=== PATIENT | male | born 1965 | race Caucasian/White ===

== ENCOUNTER 2022-03-14 18:15 | Emergency (ER) | payer OTHER ==
[2022-03-14 18:52] LABS: HEMOGLOBIN 14.1 gm/dl (14.0-17.5); RED BLOOD COUNT 4.48 M/UL (4.20-5.50); WHITE BLOOD COUNT 11.6 K/UL (4.5-11.0)
[2022-03-14 19:37] LABS: BUN/CREATININE RATIO 16 (0-10)
[2022-03-15] MEDS ORDERED: MAGNESIUM100 MG PO (17:41)
[2022-03-15] MEDS ORDERED: KLOR-CON M2020 MEQ PO (17:41)
== END 2022-03-15 18:19 | disposition home or self-care (01) ==
LOC: ER1 18:15
PROVIDERS: Student in an Organized Health Care Education/Training Program
DX: T82.897A Other specified complication of cardiac prosthetic devices, implants and grafts, initial encounter (principal); I49.9 Cardiac arrhythmia, unspecified; E87.6 Hypokalemia; I25.10 Atherosclerotic heart disease of native coronary artery without angina pectoris; I48.91 Unspecified atrial fibrillation; I51.9 Heart disease, unspecified; Z79.01 Long term (current) use of anticoagulants; F17.210 Nicotine dependence, cigarettes, uncomplicated; Y83.8 Other surgical procedures as the cause of abnormal reaction of the patient, or of later complication, without mention of misadventure at the time of the procedure
CPT/HCPCS: 70450; 71045; 80053; 82550; 82553; 83735; 84132; 84484; 85025; 93005; 96365; 96376; 99285; J3475